=== PATIENT | male | born 1970 | race Caucasian/White ===

== ENCOUNTER 2018-02-28 18:56 | Emergency (ER) | payer OTHER ==
[2018-02-28 19:17] VITALS: BP 152/98
--- NOTE | 2018-02-28 19:51 | UC ---
Dizzy HPI HPI Summary: This pt is a 48 y/o male presenting to [facility] c/o dizziness for the past 3 days now. Pt reports dizziness has become more frequent. He describes dizziness as feeling of passing out and "dropping, free fall sense of sensation." Pt additionally notes left ear ache that began about 3 days ago, which he describes as dull ache and popping after yawning. Pt notes that after feeling "all blood leaving" his body he gets a wave of nausea. Denies vomiting, difficulty with speech, numbness, weakness. He also reports some back pain, recent stress (mom in ICU and moving back to [place] 1 week ago). Pt was seen at Urgent Care on 02/25 for dizziness and was prescribed Meclizine. He has been taking Meclizine twice a day. PMHx includes concussions and inner and outer ear infections, last ear infection was 3 weeks ago for which he was treated with drops (finished drops 1 week ago). He has felt this dizziness in the past and was diagnosed with ear infections. Allergic to ciprofloxacin, sulfa, trimethoprim. - History Of Current Complaint Chief Complaint: UCGeneralIllness Stated Complaint: RECHECK VERTIGO Hx Obtained From: Patient Onset/Duration: Lasting Days, Still Present Timing: Days Severity Currently: Mild Pain Intensity: 3 - left ear Pain Scale Used: 0-10 Numeric Character: Dizzy - feeling of passing out Aggravating Factor(s): Nothing Alleviating Factor(s): Nothing Associated Signs And Symptoms: Positive: Nausea - and left ear pain. Negative: Vomiting, Diaphoresis, Chest Pain, SOB, Unsteady Gait, Visual Changes - Allergies/Home Medications Allergies/Adverse Reactions: Allergies Allergy/AdvReac Type Severity Reaction Status Date / Time ciprofloxacin [From Cipro] Allergy Joint Pain Verified 02/28/18 19:17 sulfamethoxazole Allergy Rash Verified 02/28/18 19:17 [From Bactrim] trimethoprim [From Bactrim] Allergy Rash Verified 02/28/18 19:17 PMH/Surg Hx/FS Hx/Imm Hx - Additional Past Medical History Additional PMH: PMHx: ear infections, concussions Previously Healthy: Yes Other Endocrine History: DENIES: diabetes Other Cardiovascular History: DENIES: HTN - Surgical History Surgical History: Yes Surgery Procedure, Year, and Place: APPENDECTOMY, RIGHT HAND SURGERY - Family History Known Family History: Negative: Diabetes - Social History Alcohol Use: Daily Alcohol Amount: 2-3 DRINKS/DAY Substance Use Type: None Smoking Status (MU): Never Smoked Tobacco Review of Systems Constitutional: Negative Skin: Negative Eyes: Negative ENT: Ear Ache - Left Respiratory: Negative Cardiovascular: Negative Gastrointestinal: Nausea, Other - DENIES: vomiting Genitourinary: Negative Motor: Negative Neurovascular: Negative Musculoskeletal: Other: - POS: back pain Neurological: Other - POS: dizziness. NEG: headache, weakness, numbness Psychological: Negative All Other Systems Reviewed And Are Negative: Yes Physical Exam - Summary Physical Exam Summary: General: well-appearing, no pain distress Skin: warm, color reflects adequate perfusion, dry Head: normal Eyes: EOMI, LYDIA. No nystagmus. ENT: Left ear canal is moist. Mild tenderness to palpation of tragus. Neck: supple, nontender Respiratory: CTA, breath sounds present Cardiovascular: RRR Abdomen: soft, nontender Bowel: present Musculoskeletal: normal, strength/ROM intact Neurological: normal, sensory/motor intact, A&O x3. No nystagmus. Psychological: affect/mood appropriate Triage Information Reviewed: Yes Vital Signs: Initial Vital Signs Temp 98.0 F 02/28/18 19:09 Pulse 70 02/28/18 19:09 Resp 18 02/28/18 19:09 BP 152/98 02/28/18 19:09 Pulse Ox 96 02/28/18 19:09 Vital Signs Reviewed: Yes Dizzy Course/Dx - Course Course Of Treatment: Medications reviewed. Allergies noted. BP noted and advised to follow up with PCP. DIARRHEA HAS IMPROVED. THE LEFT EAR PAIN IS INCREASING ARE THE VERTIGO SX. NO FOCAL NEUROLOGIC DEFICIT. DISCUSSED GETTING A HEAD CT; THE PATIENT PREFERS TO TREAT THE EAR FISRST HE HAS HAD VERTIGO EPISODES IN THE PAST WITH EAR INFECTIONS. F/U PMD; RECHECK SOONER IF WORSE. - Differential Dx/Diagnosis Provider Diagnoses: LEFT OTITIS MEDIA AND OTITIS EXTERNA. VERTIGO. Elevated BP without diagnosis of HTN Discharge - Sign-Out/Discharge Documenting (check all that apply): Patient Departure - Discharge All imaging exams completed and their final reports reviewed: No Studies - Discharge Plan Condition: Stable Disposition: HOME Prescriptions: Amoxicillin/Clavulanate TAB* [Augmentin TAB 875*] 875 mg PO BID #20 tab Ciproflox/Dexameth OTIC.SUSP* [Ciprodex OTIC.SUSP*] 4 drop OTIC BID #1 btl Patient Education Materials: Ciprofloxacin/Dexamethasone (Into the ear), Otitis Externa (ED), Vertigo (ED) Referrals: [facility] [[place]] Additional Instructions: FOLLOW UP WITH YOUR DOCTOR. GET RECHECKED FOR ANY WORSENING OF YOUR CONDITION OR QUESTIONS OR CONCERNS. Your blood pressure was elevated during todays visit, please follow up with your primary care provider within a week for further evaluation. - Billing Disposition and Condition Condition: STABLE Disposition: Home - Attestation Statements Document Initiated by Scribe: Yes Documenting Scribe: Yanelis Vargas Provider For Whom Scribe is Documenting (Include Credential): Dontae Ennis MD Scribe Attestation: Yanelis Rea scrrhiannoned for Dontae Ennis MD on 02/28/18 at 2126. Scribe Documentation Reviewed: Yes Provider Attestation: The documentation as recorded by the Yanelis apple accurately reflects the service I personally performed and the decisions made by Dontae hdz MD
== END 2018-02-28 20:10 | disposition home or self-care (01) ==
LOC: UCEAST 18:56
DX: H66.92 Otitis media, unspecified, left ear (principal); H60.92 Unspecified otitis externa, left ear; R42 Dizziness and giddiness; R03.0 Elevated blood-pressure reading, without diagnosis of hypertension; Z88.1 Allergy status to other antibiotic agents; Z88.2 Allergy status to sulfonamides
CPT/HCPCS: 99212; G0463

== ENCOUNTER 2018-03-21 18:19 | Emergency (ER) | payer OTHER ==
[2018-03-21 19:47] VITALS: BP 135/87
--- NOTE | 2018-03-21 20:26 | UC ---
Ear Complaint HPI - HPI Summary HPI Summary: 48 y/o male presents to the urgent care c/o left ear pain for the past week. Pt reports he has been seen at the urgent care already 2x in the past month for ear infection in the same ear. Pt reports first time he had dizziness and Rx Meclizine. Second time he was Tx for Otitis Externa and Otitis media, symptoms improved, but now returned after 1 week of finishing the ABx. He had mild dizziness yesterday which resolved w/ Meclizine PO. Pain is 3/10. He lost the otic drops after 2 days of using them. Pt denies fever, dizziness, tinnitus, POTTS , URI, chest pain, abdominal pain,N/V/d. - History of Current Complaint Chief Complaint: UCEar Stated Complaint: L EAR COMPLAINT Time Seen by Provider: 03/21/18 20:19 Hx Obtained From: Patient Onset/Duration: Gradual Onset, Lasting Weeks - 1 week, Still Present Severity Initially: Mild Severity Currently: Mild Pain Intensity: 3 Pain Scale Used: 0-10 Numeric Associated Signs/Symptoms: Positive: Hearing Loss - Allergies/Home Medications Allergies/Adverse Reactions: Allergies Allergy/AdvReac Type Severity Reaction Status Date / Time ciprofloxacin [From Cipro] Allergy Joint Pain Verified 03/21/18 19:47 sulfamethoxazole Allergy Rash Verified 03/21/18 19:47 [From Bactrim] trimethoprim [From Bactrim] Allergy Rash Verified 03/21/18 19:47 PMH/Surg Hx/FS Hx/Imm Hx Previously Healthy: Yes - Pt denies PMHX - Surgical History Surgical History: Yes Surgery Procedure, Year, and Place: APPENDECTOMY, RIGHT HAND SURGERY - Family History Known Family History: Positive: Diabetes - Social History Occupation: Employed Full-time Lives: With Family Alcohol Use: Daily Alcohol Amount: 2-3 DRINKS/DAY Substance Use Type: None Smoking Status (MU): Never Smoked Tobacco Review of Systems Constitutional: Negative Skin: Negative Eyes: Negative ENT: Ear Ache - left ear pain, Nasal Discharge Respiratory: Negative Cardiovascular: Negative Gastrointestinal: Negative Genitourinary: Negative Motor: Negative Neurovascular: Negative Musculoskeletal: Negative Neurological: Negative Psychological: Negative Is Patient Immunocompromised?: No All Other Systems Reviewed And Are Negative: Yes Physical Exam - Summary Physical Exam Summary: Vital signs: reviewed General: well developed, well nourished male sitting in the examining table w/o any apparent distress Skin: [place], warm and dry, no evidence of atopic dermatitis, psoriasis, seborrhea. HEENT: -Head: atraumatic, non tender; no scalp dermatitis. -Eyes: sclera and conjunctiva clear, PERRLA, EOMI -Ears: no pre- or postauricular lymphadenopathy or erythema; LF external ear canal with erythema and yellowish purulent discharge, pinna tenderness on palpation, LF TM injected w/ erythema and mild white discharge. Rt external ear canal clear and RT TM WNL. TMs normal w/out bulging or retraction. Good light reflex. No fluid level, vesicles, or bullae. No perforation. -Nose/Face: erythematous and edematous nasal mucosa with clear rhinorrhea, no frontal or maxillary sinus tender to palpation. -Mouth/Throat: Mucous membrane moist, posterior pharynx clear, no erythema or exudates. Neck: supple, FROM, nontender, no lymphadenopathy, no meningismus. Chest: Clear to auscultation, normal breath sounds Abd: soft, Bowel sounds active, Nontender. Back: no spinal or CVAT Neuro: A&O x4, GCS 15, no focal neuro deficits, normal behavior for age. Triage Information Reviewed: Yes Vital Signs: Initial Vital Signs Temp 98.2 F 03/21/18 19:41 Pulse 56 03/21/18 19:41 Resp 18 03/21/18 19:41 BP 135/87 03/21/18 19:41 Pulse Ox 100 03/21/18 19:41 Ear Complaint Course/Dx - Course Course Of Treatment: 48 y/o male presents to the urgent care c/o left ear pain for the past week. Pt reports he has been seen at the urgent care already 2x in the past month for ear infection in the same ear. Pt reports first time he had dizziness and Rx Meclizine. Second time he was Tx for Otitis Externa and Otitis media, symptoms improved, but now returned after 1 week of finishing the ABx. He had mild dizziness yesterday which resolved w/ Meclizine PO. Pain is 3/10. He lost the otic drops after 2 days of using them. Pt denies fever, dizziness, tinnitus, POTTS, URI, chest pain, abdominal pain,N/V/d. Hx obtained. pt w/ Left otitis Media and externa on examination. Pt Rx Amoxicillin PO an Ciprodex otic drops. first dose of ABx givne tonight by the nurse. Pt tolerated well medication. Pt givne a referral w/ ENT DR Anglin since recurrent otitis w/o complete resolution despite full treatment w/ ABx. Pt advised to take Ibuprofen PO for otalgia. D/C instructions explained. Pt understood and agreed with D/C - Differential Dx/Diagnosis Differential Diagnosis/HQI/PQRI: Cerumen Impaction, Otitis Externa, Otitis Media , URI, Other - laberyntitis Provider Diagnoses: 1- Acute left otitis Media and externa. 2-Otalgia Discharge - Sign-Out/Discharge Documenting (check all that apply): Patient Departure - D/c home All imaging exams completed and their final reports reviewed: No Studies - Discharge Plan Condition: Stable Disposition: HOME Prescriptions: Amoxicillin PO (*) [Amoxicillin 875 MG (*)] 875 mg PO BID #19 tab Ciproflox/Dexameth OTIC.SUSP* [Ciprodex OTIC.SUSP*] 4 drop OTIC BID #1 btl Patient Education Materials: Ear Infection (ED) Referrals: [facility] [facility] [place]] - 3 Days Edwar Anglin MD [Medical Doctor] - 3 Days Additional Instructions: 1- Please take the full course of the antibiotic to avoid resistance. first dose given tonight 2- Please apply Ciprodex otic drops as directed to alleviate otitis externa 3-Please take ibuprofen PO q6-8hrs prn as instructed after meals to alleviate pain and swelling. 4-Continue taking Meclizine PO if you develop dizziness 5--Please f/u with ENT Dr Anglin since you have recurrent ear infections in the past month w/o complete resolutions for further evaluation and treatment. - Billing Disposition and Condition Condition: STABLE Disposition: Home
[2018-03-21] MEDS ORDERED: Amoxicillin PO (*) 500 MG CAP PO ONE (20:48)
== END 2018-03-21 21:05 | disposition home or self-care (01) ==
LOC: UCEAST 18:19
DX: H66.92 Otitis media, unspecified, left ear (principal); H60.92 Unspecified otitis externa, left ear; Z88.1 Allergy status to other antibiotic agents; Z88.2 Allergy status to sulfonamides
CPT/HCPCS: 99212; A9270-GY; G0463

== ENCOUNTER 2018-05-26 16:47 | Emergency (ER) | payer OTHER ==
--- OUTSIDE RECORDS SUMMARY | 2018-05-26 16:52 | XMS REPORT | Continuity of Care Document ---
:1970 External Reference #:[id number] Author Name Joshua Friedman M.D. Address [address] [place] [address] Care Team Providers Name Role Phone Molly Gotti M.D. Care Team Information Sample Display Preparer Unavailable Molly Gotti M.D. Primary Care Physician Unavailable Payers Type Date Identification Numbers Payment Provider Subscriber Policy Number: [id number] [facility] [employer] Group Number: [id number] [facility] [id number] Group Name: [id number] [place] [address] PayID: [id number] Advance Directives Description No Information Available Problems Date Description Provider Status Onset: 05/16/2018 Difficulty speaking Joshua Friedman M.D. Active Family History Date Family Member(s) Problem(s) Comments General Cancer General Thyroid Disease General Parkinson Disease General ALS Dad General Stroke Onset: (age 77 Years) Mother Parkinson Disease Mother Thyroid Disease Social History Type Date Description Comments Sex Unknown Occupation [employer] Tobacco Use Start: Unknown Never Smoked Cigarettes Tobacco Use Start: Unknown Never Smoked Cigars Tobacco Use Start: Unknown Never Smoked A Pipe Smokeless Tobacco Current Tobacco Chewer occasional ETOH Use Currently consumes alcohol Tobacco Use Start: Unknown Patient has never smoked Smoking Status Reviewed: 05/15/18 Patient has never smoked Allergies, Adverse Reactions, Alerts Date Description Reaction Status Severity Comments 03/30/2018 Cipro joint pain Active 03/30/2018 sulfa Hives Active Medications Medication Date Status Form Strength Qnty SIG Indications Ordering Provider No Active Active Unknown Medications 018 Amoxicillin 0 Hx Tablets 875mg Take 1 Unknown 000 - Tablet By Mouth Two 018 Times A Day For 10 Days Ciprodex 00/00/0 Hx Suspension 0.3-0.1% Instill 4 Unknown 000 - Drops Into Left Ear 018 Two Times A Day For 7 Days Immunizations Description No Information Available Vital Signs Date Vital Result Comment 05/16/2018 10:10am Weight 173.00 lb Weight 78.473 kg Height 71 inches 5'11" Height in cm's 180.3 cm BMI (Body Mass Index) 24.1 kg/m2 03/30/2018 1:54pm Weight 173.00 lb Weight 78.473 kg Height 71 inches 5'11" Height in cm's 180.3 cm BMI (Body Mass Index) 24.1 kg/m2 Results Description No Information Available Procedures Date Code Description Status 05/16/2018 67929 Tympanometry Completed 05/16/2018 62550 Comprehensive Audiogram Completed 05/16/2018 79720 Videostroboscopy Completed Encounters Type Date Location Provider Dx Diagnosis Office Visit 03/30/2018 [place],After Edwar Ludwig H60.8x2 Other otitis 1:45p 06/21/07 MD [place] externa, left ear R49.0 Dysphonia Plan of Treatment 05/16/2018 - Joshua Friedman M.D.R49.0 DysphoniaComments:The patient represents today because 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 He learned some strategies to control his voice and now primarily in social interactions where he has to project his voice , ordering at a counter, telephones or projecting to an audience. His father of ALS and his mother has Parkinson's disease. He was evaluated in the voice clinic today. Speaking to him at times the possibility of SD was heard, but on his videostroboscopy he clearly has vocal tremor both with palata and laryngeal tremor. I did not see definitive SD. There also a few things he said that made me concerned about an oromandibular dystonia. But this was intermittent.He could have SD with vocal tremor. There may also be muscle tension dysphonia that is leading to his voice problems with public speaking. It is possible that he has done enough therapeutic strategies that I am not hearing the SD component todayWe reviewed all of this with him. See DECORATOR HAND note for details about her evaluation. I want him to get more speech therapy and return in the voice clinic for reevaluation. We did review the use of BOTOX. With mixed tremor-SD the result his more variable.I do want him to get a neurologic evaluation.H90.3 Sensorineural hearing loss, bilateralComments:The patient is found today to have a mild sensorineural hearing loss. There is nothing to link to his vertigo. His father young so we don't know if he would have developed hearing loss. I want torepeat the testing in 1 year.Follow up:Followup:.audio 1st in one yearG25.0 Essential tremor
[2018-05-26 17:02] VITALS: BP 133/91
[2018-05-26] MEDS ORDERED: Ibuprofen TAB* 600 MG PO ONE (17:11)
--- NOTE | 2018-05-26 17:36 | UC ---
Respiratory Complaint HPI - HPI Summary HPI Summary: 48-year-old male comes in clinic today with a chief complaint of cough chest congestion and fevers. He's had upper respiratory tract infection symptoms for 2 weeks. Last couple of days things got worse he is bringing up yellow sputum. He is short of breath with fevers. He has been hearing some wheezing. - History of Current Complaint Chief Complaint: UCRespiratory Stated Complaint: URI Time Seen by Provider: 05/26/18 17:05 Pain Intensity: 4 - Allergies/Home Medications Allergies/Adverse Reactions: Allergies Allergy/AdvReac Type Severity Reaction Status Date / Time ciprofloxacin [From Cipro] Allergy Joint Pain Verified 05/26/18 17:02 sulfamethoxazole Allergy Rash Verified 05/26/18 17:02 [From Bactrim] trimethoprim [From Bactrim] Allergy Rash Verified 05/26/18 17:02 Home Medications: Home Medications Cetirizine* [ZyrTEC 10 MG TAB*] 1 tab PO DAILY 05/26/18 [History Confirmed 05/26] PMH/Surg Hx/FS Hx/Imm Hx Previously Healthy: Yes - Surgical History Surgical History: Yes Surgery Procedure, Year, and Place: APPENDECTOMY, RIGHT HAND SURGERY - Family History Known Family History: Positive: Diabetes - Social History Alcohol Use: Daily Alcohol Amount: 2-3 DRINKS/DAY Substance Use Type: None Smoking Status (MU): Never Smoked Tobacco Review of Systems All Other Systems Reviewed And Are Negative: Yes Constitutional: Positive: Fever, Chills Skin: Positive: Negative Eyes: Positive: Negative ENT: Positive: Sore Throat, Nasal Discharge, Sinus Congestion Respiratory: Positive: Shortness Of Breath, Cough, Other - WHEEZING Cardiovascular: Positive: Negative Gastrointestinal: Positive: Negative Motor: Positive: Negative Neurovascular: Positive: Negative Musculoskeletal: Positive: Negative Neurological: Positive: Negative Psychological: Positive: Negative Is Patient Immunocompromised?: No Physical Exam Triage Information Reviewed: Yes Appearance: No Pain Distress, Well-Nourished, Ill-Appearing - MILD Vital Signs: Initial Vital Signs Temp 103.2 F 05/26/18 16:58 Pulse 87 05/26/18 16:58 Resp 18 05/26/18 16:58 BP 133/91 05/26/18 16:58 Pulse Ox 98 05/26/18 16:58 Vital Signs Reviewed: Yes Eye Exam: Normal Eyes: Positive: Conjunctiva Clear ENT: Positive: Pharyngeal erythema, Nasal congestion, Nasal drainage, TMs normal Respiratory: Positive: No respiratory distress, No accessory muscle use, Rhonchi Cardiovascular: Positive: RRR Musculoskeletal Exam: Normal Musculoskeletal: Positive: Strength Intact, ROM Intact Neurological Exam: Normal Neurological: Positive: Alert, Muscle Tone Normal Psychological Exam: Normal Psychological: Positive: Age Appropriate Behavior Skin Exam: Normal UC Diagnostic Evaluation - Laboratory O2 Sat by Pulse Oximetry: 98 Respiratory Course/Dx - Course Course Of Treatment: Order Information: CHEST PA LAT 2 VWS. Accession Number: [id number]. CPT: 68743. Indication: Fever and cough. 2 views of the chest including dual energy PA views demonstrates hyperinflated lung. ceja. There is no pleural fluid, pneumonia or pneumothorax. IMPRESSION: Hyperinflated lung ceja with no definite pneumonia. . <Electronically signed by Carly Musa MD in OV> 05/26/18 4252. I discussed the x-ray report with the patient. We also gave him an albuterol nebulizer in the clinic. Breathing was improved after the albuterol nebulizer. The overall plan is Lj wrap azithromycin and albuterol and continue symptomatic treatment. Reevaluation if not improving or worse. - Differential Dx/Diagnosis Provider Diagnosis: Bronchitis with bronchospasm Discharge - Sign-Out/Discharge Documenting (check all that apply): Patient Departure All imaging exams completed and their final reports reviewed: Yes - Discharge Plan Condition: Stable Disposition: HOME Prescriptions: Albuterol HFA INHALER* [Ventolin HFA Inhaler*] 2 puff INH Q4H PRN #1 mdi PRN Reason: Wheezing Azithromyxin ERROL (NF) [Z-Errol (Zithromax) 250 mg tabs #6] 2 tab PO .TODAY, THEN 1 DAILY #6 tab Patient Education Materials: Acute Bronchitis (ED), Bronchospasm (ED) Referrals: [facility] [place] [facility] [Outside] Additional Instructions: FOLLOW UP WITH YOUR DOCTOR IF NOT COMPLETELY IMPROVED. GET RECHECKED FOR ANY WORSENING OF YOUR CONDITION OR QUESTIONS OR CONCERNS. - Billing Disposition and Condition Condition: STABLE Disposition: Home
[2018-05-26] MEDS ORDERED: Albuterol 2.5 MG/3 ML NEB.SOL* (0.083%) INH ONE (17:42)
== END 2018-05-26 18:35 | disposition home or self-care (01) ==
LOC: UCEAST 16:47
DX: J20.9 Acute bronchitis, unspecified (principal); Z88.1 Allergy status to other antibiotic agents; Z88.2 Allergy status to sulfonamides
CPT/HCPCS: 71046; 99212; A9270-GY; G0463

== ENCOUNTER 2018-10-18 16:16 | Emergency (ER) | payer OTHER ==
[2018-10-18 16:54] VITALS: BP 118/78
--- NOTE | 2018-10-18 18:34 | UC ---
Skin Complaint HPI - HPI Summary HPI Summary: 48-year-old male presents for complaints of a skin lesion to his right forearm. States the lesion has been present for 2-3 months. Nontender. States the lesion will become scaly and is friable. States it has not changed in size since onset. Patient also complains of a 2 week history of bilateral testicular "achiness". States he had an episode of epididymitis several years ago with similar symptoms. Treated with a course of antibiotics with improvement. Denies fever, chills, abdominal pain, back or flank pain nausea, vomiting, dysuria, frequency, urgency, hematuria, testicular or scrotal swelling , penile discharge, or penile lesions. States he is only had intercourse with his spouse however they have been for the past 6 months. - History of Current Complaint Chief Complaint: UCSkin Time Seen by Provider: 10/18/18 17:39 Stated Complaint: SORE ON SKIN Hx Obtained From: Patient Pain Intensity: 1 - Allergy/Home Medications Allergies/Adverse Reactions: Allergies Allergy/AdvReac Type Severity Reaction Status Date / Time ciprofloxacin [From Cipro] Allergy Joint Pain Verified 10/18/18 16:54 sulfamethoxazole Allergy Rash Verified 10/18/18 16:54 [From Bactrim] trimethoprim [From Bactrim] Allergy Rash Verified 10/18/18 16:54 PMH/Surg Hx/FS Hx/Imm Hx Previously Healthy: Yes - Denies significant PMH - Surgical History Surgical History: Yes Surgery Procedure, Year, and Place: APPENDECTOMY, RIGHT HAND SURGERY - Family History Known Family History: Positive: Diabetes - Social History Occupation: Employed Full-time Lives: Alone Alcohol Use: Daily Alcohol Amount: 2-3 DRINKS/DAY Substance Use Type: None Smoking Status (MU): Never Smoked Tobacco Type: Smokeless Tobacco Review of Systems All Other Systems Reviewed And Are Negative: Yes Constitutional: Negative: Fever, Chills Skin: Positive: Other - See HPI Respiratory: Positive: Negative Cardiovascular: Positive: Negative Gastrointestinal: Negative: Abdominal Pain, Vomiting, Diarrhea, Nausea Genitourinary: Positive: Other - Bilateral testicular pain. Negative: Dysuria, Hematuria, Frequency, Urgency, Vaginal/Penile Burning, Vaginal/Penile Itching, Vaginal/Penile Discharge, Ulceration/Lesion Musculoskeletal: Positive: Negative Neurological: Positive: Negative Is Patient Immunocompromised?: No Physical Exam - Summary Physical Exam Summary: GENERAL APPEARANCE: Well developed, well nourished, alert and cooperative, and appears to be in no acute distress. CARDIAC: Normal S1 and S2. No S3, S4 or murmurs. Rhythm is regular. There is no peripheral edema, cyanosis or pallor. Extremities are warm and well perfused. Capillary refill is less than 2 seconds. Peripheral pulses intact. LUNGS: Clear to auscultation without rales, rhonchi, wheezing or diminished breath sounds. ABDOMEN: Positive bowel sounds. Soft, nondistended, nontender. No guarding or rebound. No masses or hepatosplenomegally. No CVA tenderness. GENITOURINARY: Circumcised. No penile discharge or lesions. Normal, non-tender testicles without edema or nodules. MUSKULOSKELETAL: ROM intact to all extremities. No joint erythema or tenderness. Normal muscular development. Normal gait. SKIN: 0.5 cm circular, erythematous, scaly, nontender lesion to his dorsal right forearm. Triage Information Reviewed: Yes Vital Signs: Initial Vital Signs Temp 99.0 F 10/18/18 16:47 Pulse 52 10/18/18 16:47 Resp 18 10/18/18 16:47 BP 118/78 10/18/18 16:47 Pulse Ox 100 10/18/18 16:47 Vital Signs Reviewed: Yes Course/Dx - Course Course Of Treatment: 48-year-old male presents for complaints of a skin lesion to his right forearm. States the lesion has been present for 2-3 months. Nontender. States the lesion will become scaly and is friable. States it has not changed in size since onset. Patient also complains of a 2 week history of bilateral testicular "achiness". States he had an episode of epididymitis several years ago with similar symptoms. Treated with a course of antibiotics with improvement. Denies fever, chills, abdominal pain, back or flank pain nausea, vomiting, dysuria, frequency, urgency, hematuria, testicular or scrotal swelling , penile discharge, or penile lesions. States he is only had intercourse with his spouse however they have been for the past 6 months. Afebrile. Vital signs stable. Exam revealed a 0.5 cm circular, erythematous, scaly, nontender lesion to his dorsal right forearm. Remainder of his exam was unremarkable. Considering the duration of the skin lesion and its friability I am recommending that he be evaluated by general surgery for a biopsy of the lesion. He has been given a referral for this. His xyjni-ur-sgbs urinalysis was normal. Urine culture as well as gonorrhea and chlamydia testing are pending. I discussed with the patient that I have a low suspicion for STI however will start him on doxycycline 100 mg twice a day 10 days pending the culture and STI testing. I'm also recommending yefo-fxk-uzkssol NSAIDs for pain. He is to follow-up with his primary care provider in 3 days if symptoms do not improve. Anticipatory guidance and warning symptoms were reviewed with the patient. Verbalizes understanding and agrees with plan of care - Differential Diagnoses - Skin Complaint Differential Diagnoses: Cellulitis, Local Allergic Reaction, Tinea, Other - skin cancer, testicular torsion, epididymitis, STI, UTI - Diagnoses Provider Diagnosis: Skin lesion of right arm, Bilateral epididymitis Discharge - Sign-Out/Discharge Documenting (check all that apply): Patient Departure All imaging exams completed and their final reports reviewed: No Studies - Discharge Plan Condition: Stable Disposition: HOME Prescriptions: Doxycycline Hyclate 100 mg PO BID #20 tab Patient Education Materials: Epididymitis (ED) Referrals: Maynor Calzada NP [Primary Care Provider] - 3 Days (If no improvement in symptoms) Licha Burden MD [Medical Doctor] - (Call for appointment) Additional Instructions: I am unsure of exactly what the lesion on your arm is but considering the appearance and length of time it has been present I feel it is appropriate to referred to general surgery for biopsy of the lesion. Follow-up with Dr. Burden for the biopsy. Call for an appointment. The urine test that was performed in the clinic today showed no evidence of infection. We will send the urine for culture and contact you if it shows anything that would change your plan of care. Start doxycycline 100 mg twice a day for 10 days. Be sure to complete the entire prescription even if you're feeling better. Take tjrx-ynp-lnuqyzr ibuprofen (Advil, Motrin) or naproxen (Aleve) according directions as needed for pain. Follow-up with your primary care provider in 3-5 days if symptoms do not improve. Seek immediate medical attention in the emergency room if you have severe abdominal pain, worsening testicular pain, scrotal swelling, difficulty or inability to urinate, or any worsening of symptoms. - Billing Disposition and Condition Condition: STABLE Disposition: Home
[2018-10-20 12:36] LABS: Neisseria gonorrhoeae (GC) RNA Negative (Negative)
== END 2018-10-18 18:48 | disposition home or self-care (01) ==
LOC: UCEAST 16:16
DX: L98.9 Disorder of the skin and subcutaneous tissue, unspecified (principal); N45.1 Epididymitis; Z88.1 Allergy status to other antibiotic agents; Z88.2 Allergy status to sulfonamides
CPT/HCPCS: 81003; 87086; 87491; 87591; 99212; G0463

== ENCOUNTER 2018-11-18 19:05 | Emergency (ER) | payer OTHER ==
--- OUTSIDE RECORDS SUMMARY | 2018-11-18 19:10 | XMS REPORT | Continuity of Care Document ---
:1970 External Reference #:[id number] Author Name Carly Ward Care Team Providers Name Role Phone Maynor Calzada NP Primary Care Physician Unavailable Payers Date Identification Numbers Payment Provider Subscriber Policy Number: [id number] [employer] Sofía Sinha PayID: [id number] [address] [place] [address] Advance Directives Description No Information Available Problems Description No Information Family History Date Family Member(s) Observation Comments Father due to ALS. 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 Smokeless Tobacco User, Uses Occasionally ETOH Use Currently consumes alcohol Tobacco Use Start: Unknown Patient has never smoked Recreational Drug Use Denies Drug Use Smoking Status Reviewed: 10/26/18 Patient has never smoked Exercise Type/Frequency Exercises regularly Allergies, Adverse Reactions, Alerts Active Allergies Reaction Severity Comments Date Cipro Severe Joint pain 04/13/2018 Sulfa Antibiotics Severe Rash 04/13/2018 Shellfish-derived Products Severe stomach pain and swelling 04/13/2018 Medications Active Medications SIG Qnty Indications Ordering Provider Date B-Complex 1 by mouth every Unknown Tablets day. Vitamin D-400 1 by mouth every Unknown 400Unit day Tablets Multi Complete 1 capsule daily Unknown Capsules Doxycycline 1 by mouth twice Unknown Monohydrate a day 100mg Capsules History Medications Fluticasone Propionate 2 sprays each 16units Maynor Calzada NP 04/13/2018 - Unknown nostril qd. 50mcg/Act Suspension Doxycycline Hyclate 1 by mouth twice a Unknown - Unknown 100mg day Tablets DR Immunizations Description No Information Available Vital Signs Date Vital Result Comment 10/26/2018 9:05am Heart Rate 60 /min Respiratory Rate 16 /min 10/19/2018 1:32pm Height 71.5 inches 5'11.50" Weight 175.00 lb Heart Rate 62 /min BP Systolic 116 mmHg BP Diastolic 78 mmHg Respiratory Rate 16 /min Body Temperature 98.5 F BMI (Body Mass Index) 24.1 kg/m2 04/13/2018 3:17pm Height 71.5 inches 5'11.50" Weight 173.00 lb Heart Rate 62 /min BP Systolic 132 mmHg BP Diastolic 84 mmHg Body Temperature 97.5 F O2 % BldC Oximetry 96 % BMI (Body Mass Index) 23.8 kg/m2 Results Test Date Facility Test Result H/L Range Note Laboratory test 10/19/2018 [facility] Surgical SEE RESULT 1 , [address] [place] [address] [phone] Poc Urinalysis 10/18/2018 [facility] Poc Glucose, Negative Negative [address] [place] [address] [phone] Poc Bilirubin, Urine Negative Negative Poc Ketone, Urine Negative Negative Poc Specific [place], Urine 1.010 N 1.010-1.030 Poc Blood, Urine Negative Negative Poc pH, Urine 6.0 N 5-9 Poc Protein, Urine Negative Negative Poc Urobilinogen, Urine 0.2 Negative Poc Nitrite, Urine Negative Negative Poc Leukocytes, Urine Negative Negative Poc Color, Urine Yellow Poc Clarity, Urine Clear 3 Urine Culture And 10/18/2018 [facility] Urine Culture SEE RESULT [address] [place] [address] [phone] GC/Chlamydia 10/18/2018 [facility] Chlamydia Negative Negative Amplified Rna [address] [place] [address] [phone] Neisseria gonorrhoeae (GC) Rna Negative Negative 1 [id number] 2 SEE RESULT BELOW Name: SOFÍA SINHA : [address]: Ayden Arora MD Acct: [id number] Unit: [id number] AGE: 48 Location: [facility] Re10/19/18 SEX: M Status: REG REF SPEC: [id number] MARGARITA: 10/19/18-[address]: Ayden Arora MD REQ: [id number] RECD: 10/19/18 STATUS: SOUT _ ORDERED: LEVEL 4 COMMENTS: [id number] FINAL DIAGNOSIS Skin, right, NOS, excision: -- Inflamed actinic keratosis with excoriation. CLINICAL HISTORY No history given GROSS DESCRIPTION The specimen is received in formalin labeled, Right Skin Lesion, and consists of a 0.8 x 0.7 0.2 x cm whitman-white irregular hairbearing skin fragment, with a central 0.4 x 0.3 cm whitman-yellow firm lesion. The specimen is inked, trisected and submitted entirely in one cassette. Signed by and Reported on: Charles Galindo MD 09/06 1209 END OF REPORT DEPARTMENT OF PATHOLOGY, [address] [place] [address] Charles Galindo M.D. Director [facility] # [id number] 3 Debate Director: [id number] 4 SEE RESULT BELOW Name: SOFÍA SINHA : [address]: Yanelis Klein MD Acct: [id number] Unit: [id number] AGE: 48 Location: [facility] Re10/18/18 SEX: M Status: DEP ER SPEC: [id number] MARGARITA: 10/18/18-[address] [place] [address] DR: Eliseo Ritchie NP REQ: [id number] RECD: 10/19/18 STATUS: SUSAN BARKER DR: Yanelis Calzada LEAD PRINCIPAL TECHNICAL ARCHITECT _ SOURCE: URINE SPDESC: ORDERED: Urine Culture Procedure Result Reported Site Urine Culture Final 10/20/18- 1140 ML No Growth (<1,000 CFU/mL) * ML - Main Lab . END OF REPORT DEPARTMENT OF PATHOLOGY, [address] [place] [address] Charles Galindo M.D. Director [facility] # [id number] Procedures Description No Information Available Encounters Type Date Location Provider Dx Diagnosis Office Visit 04/13/2018 [facility] Internal Maynor Calzada NP R42 Dizziness and 3:00p Medicine giddiness H92.02 Otalgia, left ear Plan of Treatment Future Appointment(s):11/04/2018 10:30 am - Fede Turner M.D. at [facility]10/26/2018 - Ayden Arora [id number] Actinic keratosis
[2018-11-18 19:17] VITALS: BP 142/85
[2018-11-18] MEDS ORDERED: Ibuprofen TAB* 400 MG PO ONE (19:40)
--- NOTE | 2018-11-18 19:48 | UC ---
Throat Pain/Nasal Rod HPI - HPI Summary HPI Summary: Patient is a 48-year-old male who presents to the urgent care with chief complaint of having sore throat, painful swallowing but no airway compromise. Denies any shortness of breath, no fever or chills, and he reports that he is almost diagnosed with strep pharyngitis. Rapid strep is negative therefore the patient was given ibuprofen. However the patients daughter was diagnosed with strep pharyngitis therefore I will give the prescriptions for Augmentin and he was only recommended to take if he develops any worsening symptoms, fevers, body aches. Patient understands and agrees - History of Current Complaint Chief Complaint: UCGeneralIllness Stated Complaint: SORE THROAT Time Seen by Provider: 11/18/18 19:09 Hx Obtained From: Patient Severity: Moderate Pain Intensity: 3 - Allergies/Home Medications Allergies/Adverse Reactions: Allergies Allergy/AdvReac Type Severity Reaction Status Date / Time ciprofloxacin [From Cipro] Allergy Joint Pain Verified 11/18/18 19:17 sulfamethoxazole Allergy Rash Verified 11/18/18 19:17 [From Bactrim] trimethoprim [From Bactrim] Allergy Rash Verified 11/18/18 19:17 PMH/Surg Hx/FS Hx/Imm Hx Previously Healthy: Yes - Surgical History Surgical History: Yes Surgery Procedure, Year, and Place: APPENDECTOMY, RIGHT HAND SURGERY, 1995 - Family History Known Family History: Positive: Diabetes - Social History Alcohol Use: Daily Alcohol Amount: 2-3 DRINKS/DAY Substance Use Type: None Smoking Status (MU): Never Smoked Tobacco Type: Smokeless Tobacco Review of Systems All Other Systems Reviewed And Are Negative: Yes Constitutional: Positive: Chills Skin: Positive: Negative Eyes: Positive: Negative ENT: Positive: Sore Throat Respiratory: Positive: Negative Cardiovascular: Positive: Negative Gastrointestinal: Positive: Negative Genitourinary: Positive: Negative Motor: Positive: Negative Neurovascular: Positive: Negative Musculoskeletal: Positive: Negative Neurological: Positive: Negative Psychological: Positive: Negative Is Patient Immunocompromised?: No Physical Exam - Summary Physical Exam Summary: Vital signs: Reviewed Gen.: Patient is a well developed and nourished male in no acute distress. Patient is sitting comfortably on the stretcher. Head: Normacephalic and atraumatic Eyes: PERRLA, EOMI x2. Ears: Right ear canal and TM WNL Left ear canal and TM WNL Nose Nose with dry mucosa and clear discharge. No sinus tenderness and mouth: positive pharyngeal erythema with no exudate. Neck: Supple, No lymphadenopathy. No JVD Lungs: CTA B/L CVS: S1 & S2 present. No murmurs appreciated. ABDOMEN: Soft NT w/ positive BS. EXT: FROM x 4 NEURO: A+O X 3. Triage Information Reviewed: Yes Appearance: Well-Appearing, No Pain Distress, Well-Nourished Vital Signs: Initial Vital Signs Temp 98.6 F 11/18/18 19:11 Pulse 72 11/18/18 19:11 Resp 16 11/18/18 19:11 BP 142/85 11/18/18 19:11 Pulse Ox 95 11/18/18 19:11 Throat Pain/Nasal Course/Dx - Course Course Of Treatment: Rapid strep is negative therefore the patient was given ibuprofen. However the patients daughter was diagnosed with strep pharyngitis therefore I will give the prescriptions for Augmentin and he was only recommended to take if he develops any worsening symptoms, fevers, body aches. Patient understands and agrees - Differential Dx/Diagnosis Provider Diagnosis: Pharyngitis Discharge - Sign-Out/Discharge Documenting (check all that apply): Patient Departure All imaging exams completed and their final reports reviewed: No Studies - Discharge Plan Condition: Stable Disposition: HOME Prescriptions: Amoxicillin/Clavulanate TAB* [Augmentin TAB 875*] 875 mg PO BID #20 tab Patient Education Materials: Pharyngitis (ED) Referrals: Maynor Calzada AUDIT PRACTICE INTERN [Primary Care Provider] - Additional Instructions: Take medications as instructed Increase your fluid intake F/U with PCP in the next 2-3 days Return to the if symptoms worsen - Billing Disposition and Condition Condition: STABLE Disposition: Home
== END 2018-11-18 19:55 | disposition home or self-care (01) ==
LOC: UCEAST 19:05
DX: J02.9 Acute pharyngitis, unspecified (principal); Z88.1 Allergy status to other antibiotic agents
CPT/HCPCS: 87651; 99212; A9270-GY; G0463